=== PATIENT | male | born 1995 | race African-American/Black ===

== ENCOUNTER 2018-03-25 23:37 | Emergency (ER) | payer SELFPAY ==
[~2018-03-25] VITALS: Ht 190.5 cm; Wt 95.0 kg
[~2018-03-25 23:37] MED LIST: IBUPROFEN800 MG OR; NAPROSYN500 MG PO; PERCOCET 5/325M1 TAB PO
[2018-03-26 00:07] LABS: URINE BILIRUBIN - DIPSTICK NEGATIVE (NEGATIVE); URINE BLOOD DIPSTICK TRACE-INTACT (NEGATIVE); URINE COLOR YELLOW; URINE GLUCOSE - DIPSTICK NEGATIVE (NEGATIVE); URINE KETONE NEGATIVE (NEGATIVE); URINE LEUK ESTERASE NEGATIVE (Negative); URINE NITRITE - DIPSTICK NEGATIVE (Negative); URINE PROTEIN - DIPSTICK NEGATIVE (NEG-TRACE)
[2018-03-26 00:09] LABS: URINE CLARITY CLEAR
[2018-03-26 00:13] LABS: HEMATOCRIT 28.2 % (39.0-50.0); HEMOGLOBIN 10.5 g/dl (14.0-18.0); IMMATURE GRANULOCYTES 0.6 % (0.0-5.0); MEAN CELL VOLUME 84.4 fL CALC (80.0-100.0); MEAN CORPUSCULAR HGB 31.4 pG CALC (26.0-32.0); MEAN CORPUSCULAR HGB CONC 37.2 g/L CALC (32.0-36.0); NEUT# 5.14 thou/uL (1.82-7.42); RED BLOOD COUNT 3.34 mill/uL (4.70-6.10); RED CELL DISTRI WIDTH 13.5 % (11.5-15.5)
[2018-03-26 00:27] LABS: ALBUMIN 4.3 g/dL (3.2-5.0); ANION GAP 13 (6-22 (CALC)); BILIRUBIN, TOTAL 3.1 mg/dL (0.0-1.4); BUN 11 mg/dL (9-20); BUN/CREATININE RATIO 20 (12-20 (CALC)); CARBON DIOXIDE 28 mmol/l (22-30); CHLORIDE 106 mmol/l (95-108); CREATININE 0.5 mg/dL (0.7-1.3); GFR > 60 ML/MIN (>=60 (CALC)); GFR FOR AFR.AMER. > 60 ML/MIN (>=60 (CALC)); POTASSIUM 3.8 mmol/l (3.5-5.1); SGOT/AST 35 u/l (17-59); SODIUM 143 mmol/l (137-146); TOTAL PROTEIN 7.2 g/dL (6.3-8.2)
[2018-03-26 00:29] LABS: ALKALINE PHOSPHATASE 64 u/l (38-126)
[2018-03-26] MEDS ORDERED: PERCOCET 5/325M1 TAB PO (01:01)
[2018-03-26 01:10] VITALS: BP 124/70
== END 2018-03-26 01:10 | disposition home or self-care (01) | DRG 552 ==
LOC: ED 23:37
PROVIDERS: Emergency Medicine
DX: M54.5 Low back pain (principal); D57.1 Sickle-cell disease without crisis; J45.909 Unspecified asthma, uncomplicated